=== PATIENT | female | born 1955 | race Caucasian/White ===

== ENCOUNTER 2017-08-13 11:00 | Day surgery (SDC) | payer BC ==
[2017-08-13] MEDS ORDERED: LIDOCAINE 2% MPF 5 ML VIAL ONE (11:15)
[2017-08-13] MEDS ORDERED: TETRACAINE HCL 0.5% 2ML OPTH ONE (11:15)
[2017-08-13] MEDS ORDERED: NA CHLORIDE 0.9% 500 ML ONE (11:16)
[2017-08-13] MEDS ORDERED: BUPIVACAINE 0.25% PF 30 ML VIAL ONE (11:17)
[2017-08-13] MEDS: PHENYLEPHRINE 10% OPTH 5ML ONE ×3 (11:30→11:40)
[2017-08-13] MEDS: CYCLOPENTOLATE 1% OPTH 2 ML ONE ×3 (11:30→11:40)
[2017-08-13] MEDS ORDERED: NS 0.9% VIAL 10 ML ONE ×2 (12:26→13:20)
[2017-08-13] MEDS: BALANCED SALT IRRIG PLAIN 500 ML BTL IRR ONE ×2 (12:32→12:53)
[2017-08-13] MEDS: EPINEPHRINE/PF 1 MG/ML AMP ONE ×2 (12:32→12:53)
[2017-08-13] MEDS ORDERED: FENTANYL CITR 100 MCG/2 ML ONE (12:33)
[2017-08-13] MEDS: MOXIFLOXACIN HCL 10 DROPS/ML **OR USE OPTH ONE ×2 (12:33→13:24)
[2017-08-13] MEDS: DUOVISC 1 KIT OPTH ONE ×2 (12:33→13:05)
[2017-08-13] MEDS ORDERED: MIDAZOLAM HCL 2 MG/2 ML INJ ONE (12:33)
[2017-08-13] MEDS ORDERED: PROPOFOL 200 MG/20 ML VIAL IV ONE (12:34)
[2017-08-13] MEDS ORDERED: Phenylephrine HCl 10 MG/ML 1 ML VIAL ONE (13:20)
--- NOTE | 2017-08-13 13:35 | P.BOP ---
Preoperative diagnosis: Nuclear sclerotic and posterior subcapsular catarct and regular astigmatism Postoperative diagnosis: Same OS Primary procedure: Phacoemulsification with toric IOL OS Estimated blood loss: None Anesthesia: General Complications: None Implants: [id number] 14.5 Transferred to: Recovery Room Condition: Good
[2017-08-13] MEDS ORDERED: BALANCED SALT IRRIG PLAIN 500 ML BTL IRR ONE (13:51)
--- NOTE | 2017-08-14 00:29 | OP ---
Date of Procedure: 08/13/2017 Surgeon: Joanne Ramsey MD Anesthesiologist: 1. Camilo. 2. KATIE Diop. 3. Alexi Spencer MD. Preoperative Diagnosis: Nuclear sclerotic cataract and posterior subcapsular cataract OS (left eye) and regular astigmatism OS (left eye). Operation Performed: Phacoemulsification with toric intraocular lens implant, OS (left eye). Anesthesia: General anesthesia. Complications: None. Description Of Procedure: In the operating room, the patient was prepped and draped in the usual pradip rile fashion for ophthalmic surgery. A lid speculum was placed in the left eye. Two paracentesis si loulou were made superiorly and inferiorly in the limbal cornea. Viscoat was placed in the anterior emily mber and a crescent blade was used to make a corneal groove and tunnel, and a keratome was used to en ter the anterior chamber. Provisc was placed in the anterior chamber and a 360 degree capsulotomy wa s performed with a cystitome. The lens was hydrodissected with BSS and rotated freely. The lens was removed with a stop and chop technique. A 15.65 phaco CDE was used to remove the lens. Residual co rtex was removed with the irrigation and aspiration. Provisc was placed in the capsular bag. A ZCT2 25 +14.5 at 112 degrees lens was placed in the capsular bag without complications. Irrigation and as piration was used to remove residual viscoelastic. The paracentesis sites were hydrated with BSS. T he wound and paracentesis sites were inspected and found to be watertight. Vigamox 0.[address] intracamerally at the end of the procedure. The eye was irrigated with balanced salt solution. Th e eye was patched with a soft cotton patch and Denise metal shield. The patient was returned to day surgery in good condition. Comments: The lens was hydrodelineated rather than hydrodissected. She was performed under general anesthesia because of a long axial length having a scleral buckle and anticipating a complicated case . Discharge Instructions: Ms. See is discharged to home in good condition and is to follow up with Dr Armani Ramsey in the morning. WALKER/MELODYL Voice ID: [id number] Report ID: [id number]
== END 2017-08-13 14:35 | disposition home or self-care (01) ==
LOC: OR 11:00
PROVIDERS: ATTEND Ophthalmology Retina Specialist
PROC: 08RK3JZ Replacement of Left Lens with Synthetic Substitute, Percutaneous Approach (ICD-10-PCS; principal; 2017-08-13 11:15)
DX: H25.12 Age-related nuclear cataract, left eye (principal); H25.042 Posterior subcapsular polar age-related cataract, left eye; H52.222 Regular astigmatism, left eye; K21.9 Gastro-esophageal reflux disease without esophagitis; Z85.3 Personal history of malignant neoplasm of breast; Z90.10 Acquired absence of unspecified breast and nipple; Z80.9 Family history of malignant neoplasm, unspecified
CPT/HCPCS: J0171; J2250; J2370; J3010